=== PATIENT | male | born 1975 | race Caucasian/White ===

== ENCOUNTER 2016-11-11 14:15 | Emergency (ER) | payer MEDICAID ==
[~2016-11-11] VITALS: Ht 170.2 cm; Wt 70.8 kg
[2016-11-11 14:20] VITALS: BP 130/68
== END 2016-11-11 15:26 | disposition home or self-care (01) ==
LOC: ER 14:15
DX: S01.01XD Laceration without foreign body of scalp, subsequent encounter (principal); Z48.02 Encounter for removal of sutures; F17.210 Nicotine dependence, cigarettes, uncomplicated; Z59.0 Homelessness

== ENCOUNTER 2018-02-15 16:35 | Emergency (ER) | payer MEDICAID ==
[~2018-02-15] VITALS: Ht 170.2 cm; Wt 83.0 kg
[2018-02-15 17:20] VITALS: BP 137/84
[2018-02-15 17:33] LABS: Urine WBC None Seen /hpf (0 - 3)
[2018-02-15 17:54] LABS: Urine Bacteria NONE SEEN /hpf (None Seen); Urine Blood Negative /uL (Negative); Urine Specific Gravity 1.002 (1.001-1.035)
[2018-02-15 18:11] LABS: Alcohol, Urine < 3.0 mg/dL (0-5); Amphetamine Screen, Urine POSITIVE (NEGATIVE); Barbiturate Scree,Urine NEGATIVE (NEGATIVE); Benzodiazephine Screen, Urine NEGATIVE (NEGATIVE); Cannabinoid Screen, Urine NEGATIVE (NEGATIVE); Cocaine Screen, Urine NEGATIVE (NEGATIVE); Opiate Scree,Urine NEGATIVE (NEGATIVE); Phencyclidine Screen, Urine NEGATIVE (NEGATIVE)
== END 2018-02-16 05:13 | disposition left against medical advice (07) ==
LOC: ER 16:35 → EDBD 16:35 → ER 22:11
DX: R39.198 Other difficulties with micturition (principal); Z53.21 Procedure and treatment not carried out due to patient leaving prior to being seen by health care provider
CPT/HCPCS: 80307; 81001

== ENCOUNTER 2019-09-28 11:55 | Emergency (ER) | payer MEDICAID ==
[~2019-09-28] VITALS: Ht 170.2 cm; Wt 74.8 kg
[2019-09-28 15:34] VITALS: BP 140/65
== END 2019-09-28 16:11 | disposition home or self-care (01) ==
LOC: ER 11:59
DX: L03.211 Cellulitis of face (principal); L03.221 Cellulitis of neck; L03.113 Cellulitis of right upper limb; F17.210 Nicotine dependence, cigarettes, uncomplicated

== ENCOUNTER 2020-07-12 04:20 | Emergency (ER) | payer MEDICAID ==
[~2020-07-12] VITALS: Ht 170.2 cm; Wt 77.1 kg
[2020-07-12 06:50] VITALS: BP 146/99
== END 2020-07-12 07:22 | disposition home or self-care (01) ==
LOC: ER 04:20
DX: L03.811 Cellulitis of head [any part, except face] (principal); F17.210 Nicotine dependence, cigarettes, uncomplicated

== ENCOUNTER 2025-05-18 10:50 | Emergency (ER) | payer MEDICAID ==
[~2025-05-18] VITALS: Ht 170.2 cm; Wt 75.0 kg
--- NOTE | 2025-05-18 12:33 | ED.PDOC ---
GI ASSESSMENT HPI Comments This is a 49 year old male presenting to the ED with chief complaint of parasites. Patient reports that he has been experiencing what he describes as small yellow worms with white crystals present in his stools for the past 2 months. Patient relays that he [place] [facility] [place] and was prescribed anti-parasite medication (does not remember name). Patient states that he had no relief from the medication, returning 2 weeks later and got the same medication again, but still no relief. Patient notes no stool sample was taken from last visit. Patient reports that he has been experiencing associated symptoms of headache, nausea, and intermittent abdominal pain. Patient denies any vomiting, diarrhea, chest pain, fever, chills, SOB, hematemesis, or melena. Chief Complaint: Nausea/Vomiting Time Seen by MD: 12:28 Primary Care Provider: ISHA Keating Notes: Nurses Notes, Medications, Allergies Allergies: Coded Allergies: NO KNOWN ALLERGIES (Unverified , 07/24/13) Information Source: Patient Mode of Arrival: Ambulatory Timing: Months Duration: Since onset Prehospital treatment: None Quality: Aching Vomitus: None Stool: Other Severity: Moderate Recent: None Recent Hx of: None Pain Location: Diffuse Modifying Factors: Nothing Associated sign and symptoms: Nausea, Abdominal Pain Past Medical History PAST MEDICAL HISTORY: Denies Surgical History: Denies all surgeries Family History Family History: Unobtainable Social History Smoker: Cigarettes Alcohol: Heavy Drugs: Marijuana, Methamphetamine Lives In: Homeless Constitutional: denies: chills, diaphoresis, fatigue, fever, malaise, sweats, weakness, others EENTM: denies: blurred vision, double vision, ear bleeding, ear discharge, ear drainage, ear pain, ear ringing, eye pain, eye redness, hearing loss, mouth pain, mouth swelling, nasal discharge, nose bleeding, nose congestion, nose pain, photophobia, tearing, throat pain, throat swelling, voice changes, others Respiratory: denies: cough, hemoptysis, orthopnea, SOB at rest, shortness of breath, SOB with excertion, stridor, wheezing, others Cardiovascular: denies: chest pain, dizzy spells, diaphoresis, Dyspnea on exertion, edema, irregular heart beat, left arm pain, lightheadedness, palpitations, PND, syncope, others Gastrointestinal: reports: abdominal pain, nausea, others (Yellow worms and white "crystals" in stool.); denies: abdomen distended, blood streaked bowels, constipated, diarrhea, dysphagia, difficulty swallowing, hematemesis, melena, poor appetite, poor fluid intake, rectal bleeding, rectal pain, vomiting Genitourinary: denies: burning, dysuria, flank pain, frequency, hematuria, incontinence, penile discharge, penile sore, pain, testicle pain, testicle swelling, urgency, others Neurological: reports: headache; denies: dizziness, fainting, left sided numbness, left sided weakness, numbness, paresthesia, pre-existing deficit, right sided numbness, right sided weakness, seizure, speech problems, tingling, tremors, weakness, others Musculoskeletal: denies: back pain, gout, joint pain, joint swelling, muscle pain, muscle stiffness, neck pain, others Integumetry: denies: bruises, change in color, change in hair/nails, dryness, laceration, lesions, lumps, rash, wounds, others Allergic/Immunocompromised: denies: Difficulty Healing, Frequent Infections, Hives, Itching, others Hematologic/Lymphatic: denies: anemia, blood clots, easy bleeding, easy bruising, swollen glands, others Endocrine: denies: excessive hunger, excessive sweating, excessive thirst, excessive urination, flushing, intolerance to cold, intolerance to heat, unexplained weight gain, unexplained weight loss, others Psychiatric: denies: anxiety, bipolar disorder, depression, hopeless, panic disorder, schizophrenia, sleepless, suicidal, others All Other Systems: Reviewed and Negative Physical Exam General Appearance: No Apparent Distress, Normal HEENT: Normal ENT Inspection, Pharynx Normal, TMs Normal Neck: Full Range of Motion, Non-Tender, Normal, Normal Inspection Respiratory: Chest Non-Tender, Lungs Clear, No Accessory Muscle Use, No Respiratory Distress, Normal Breath Sounds Cardiovascular: No Edema, No JVD, No Murmur, No Gallop, Normal Peripheral Pulses, Regular Rate/Rhythm Breast Exam: Deferred Gastrointestinal: No Organomegaly, Non Tender, No Pulsatile Mass, Normal Bowel Sounds, Soft Genitalia: Deferred Pelvic: Deferred Rectal: Normal Exam, Normal rectal tone Extremities: No calf tenderness, Normal capillary refill, Normal inspection, Normal range of motion, Non-tender, No pedal edema Musculoskeletal : Apperance: Normal Neurologic: Alert, improvement auditor II-XII nml as Tested, No Motor Deficits, Normal Affect, Normal Mood, No Sensory Deficits Cerebellar Function: Normal Reflexes: Normal Skin: Dry, Normal Color, Warm Lymphatic: No Adenopathy Was a procedure done? Was a procedure done?: No X-Ray, Labs, Meds, VS Vital Signs Date Time Temp Pulse Resp B/P (MAP) Pulse Ox O2 Delivery O2 Flow Rate FiO2 05/18/25 10:52 97.7 70 16 150/97 98 97.7 Lab Test 05/18/25 14:13 05/18/25 12:30 Range/Units Stool Occult Blood Negative Negative Stool Occult Blood Sample #3 Negative Stool for White Cells None seen White Blood Count 9.3 4.4-10.8 10^3/uL Red Blood Count 4.78 4.5-5.90 10^6/uL Hemoglobin 14.6 13.5-17.5 g/dL Hematocrit 43.0 41.0-53.0 % Mean Corpuscular Volume 90.0 80.0-100.0 fL Mean Corpuscular Hemoglobin 30.5 28.0-32.0 pg Mean Corpuscular Hemoglobin Concent 33.9 32.0-36.0 g/dL Red Cell Distribution Width 14.0 11.8-14.3 % Platelet Count 333 140-450 10^3/uL Mean Platelet Volume 7.9 6.9-10.8 fL Neutrophils (%) (Auto) 71.9 37.0-80.0 % Lymphocytes (%) (Auto) 18.8 10.0-50.0 % Monocytes (%) (Auto) 7.0 0.0-12.0 % Eosinophils (%) (Auto) 1.4 0.0-7.0 % Basophils (%) (Auto) 0.9 0.0-2.0 % Neutrophils # (Auto) 6.7 1.6-8.6 10 ^3/uL Lymphocytes # (Auto) 1.7 0.4-5.4 10 ^3/uL Monocytes # (Auto) 0.7 0-1.3 10 ^3/uL Eosinophils # (Auto) 0.1 0-0.8 10 ^3/uL Basophils # (Auto) 0.1 0-0.2 10 ^3/uL Nucleated Red Blood Cells 0.1 % Sodium Level 136 136-145 mmol/L Potassium Level 4.3 3.5-5.1 mmol/L Chloride Level 104 98-107 mmol/L Carbon Dioxide Level 24 20-31 mmol/L Anion Gap 8 5-15 Blood Urea Nitrogen 20 9-23 mg/dL Creatinine 1.05 0.700-1.30 mg/dL Glomerular Filtration Rate Calc 88 >90 mL/min BUN/Creatinine Ratio 19.0 10.0-20.0 Serum Glucose 86 74-106 mg/dL Lactic Acid Level 1.6 0.4-2.0 mmol/L Calcium Level 9.5 8.7-10.4 mg/dL Lipase 44 12-53 U/L X-Ray, Labs, Meds, VS Comment This is a 49 year old male presenting to the ED with chief complaint of parasites. Patient arrives alert and oriented, ABC's intact, afebrile, vital signs stable, saturating well in room air Peripheral IV insertion+ labs were ordered. CBC was ordered to exclude anemia, blood loss, or infection. BMP was ordered to exclude electrolyte abnormalities, renal failure, dehydration, hyperglycemia Blood culture and Lactic acid was ordered to rule out sepsis. Lipase was ordered to rule out pancreatitis. Stool WBC, Ova/Parasites, and C. Diff was ordered. Occult Stool was ordered. Labs in the ED showed (pertinent+ and then pertinent-) Additional MDM Review of External, Non-ED records: External records reviewed. Discussion with independent historian (EMS, family) history obtained from the patient/parents (if applicable) at bedside Chronic conditions affecting care: None Social determinants of health affecting care: None Consideration of admission (observation or admission): I considered escalation of care to admission for this patient, however given the reassuring workup, the patient is safe for outpatient management. Time of 1ST Reevaluation: 12:55 Reevaluation 1ST: Unchanged Patient Education/Counseling: Diagnosis, Treatment Family Education/Counseling: No Family Present SEPSIS Sepsis Screen Date sepsis recognized/suspect: May 18, 2025 Time Sepsis recognized/suspect: 105 Recent Procedure: No On Antibiotic Therapy: No Respiratory Rate >20: No Heart Rate >90: No Temp<36 C (96.8 F) or >38.3 C: No SBP <90 or MAP <65 mmHG: No New Acute Mental Status Change: No Is the patient on CPAP, BIPAP,: No Physician Orders Clostridium Difficile Toxin (05/18/25 11:49) Ova & Parasite Exam (05/18/25 11:49) Blood Culture (05/18/25 11:49) Heplock Iv (05/18/25 ) Vital Signs Date Time Temp Pulse Resp B/P (MAP) Pulse Ox O2 Delivery O2 Flow Rate FiO2 05/18/25 10:52 97.7 70 16 150/97 98 97.7 Laboratory Tests Test 05/18/25 12:30 Lactic Acid Level 1.6 mmol/L (0.4-2.0) White Blood Count 9.3 10^3/uL (4.4-10.8) Departure 1 Departure Time of Disposition: 15:31 Impression: Primary Impression: Parasites in stool Disposition: 01 HOME / SELF CARE / HOMELESS Condition: Stable e-Prescriptions Metronidazole (Metronidazole) 500 Mg Tab 500 MG PO TID for 7 Days, #21 TAB 0 Refills Prov: NORA HEATH NP 05/18/25 Tinidazole (TINIDAZOLE) 500 Mg Tab 2 GRAMS PO ONCE for 1 Day, #4 TAB 0 Refills Prov: NORA HEATH NP 05/18/25 Discharged With: Self Critical Care Note Critical Care Time?: No Stability Stability form required: No Heart Score Heart Score: Heart Score Response (Comments) Value History N/A 0 EKG N/A 0 Age N/A 0 Risk Factors N/A 0 Troponin N/A 0 Total 0 I personally scribed for NORA HEATH NP ([email or web address]) on 05/18/25 at 12:33. Electronically submitted by Emiliano Bermudez ([email or web address]). NORA HEATH NP May 18, 2025 12:33
[2025-05-18 13:03] LABS: Hematocrit 43.0 % (41.0-53.0); Hemoglobin 14.6 g/dL (13.5-17.5); Mean Corpuscular Hemoglobin 30.5 pg (28.0-32.0); Mean Corpuscular Volume 90.0 fL (80.0-100.0); Nucleated Red Blood Cells % 0.1 %
[2025-05-18 13:14] LABS: Anion Gap 8 (5-15); Carbon Dioxide 24 mmol/L (20-31); Chloride 104 mmol/L (98-107); Potassium 4.3 mmol/L (3.5-5.1)
[2025-05-18 13:15] LABS: Calcium 9.5 mg/dL (8.7-10.4)
[2025-05-18 13:18] LABS: Sodium 136 mmol/L (136-145)
[2025-05-18 13:20] LABS: BUN/Creatinine Ratio 19.0 (10.0-20.0); Blood Urea Nitrogen 20 mg/dL (9-23); Glucose 86 mg/dL (74-106); Lipase 44 U/L (12-53)
[2025-05-18] MEDS ORDERED: TINI1TAB5 PO (15:36)
[2025-05-18] MEDS ORDERED: MET500T PO (15:36)
[2025-05-18 16:15] VITALS: BP 148/93; PULSE 69; RESP 16; TEMP 98.7; O2SAT 97
== END 2025-05-18 16:17 | disposition home or self-care (01) ==
LOC: ER 10:50
DX: B82.9 Intestinal parasitism, unspecified (principal); F17.210 Nicotine dependence, cigarettes, uncomplicated; Z79.899 Other long term (current) drug therapy; Z59.00 Homelessness unspecified; Z86.2 Personal history of diseases of the blood and blood-forming organs and certain disorders involving the immune mechanism
CPT/HCPCS: 36415; 80048; 82270; 83605; 83690; 85025; 85048; 87040; 87177; 87493